=== PATIENT | male | born 1950 | race Caucasian/White ===

== ENCOUNTER 2021-05-15 11:58 | Emergency (ER) | payer MEDICARE ==
[~2021-05-15] VITALS: Ht 170.2 cm; Wt 90.0 kg
[2021-05-15 12:21] VITALS: BP 199/73
[2021-05-15 14:41] LABS: CHLORIDE 104 mEq/L (98-107)
[2021-05-15 16:00] LABS: CLARITY URINE CLEAR (CLEAR); COLOR URINE YELLOW (YELLOW); KETONES URINE NEGATIVE (NEGATIVE); LEUKOCYTE ESTERASE URINE NEGATIVE (NEGATIVE); NITRITE URINE NEGATIVE (NEGATIVE); OCCULT BLOOD URINE 1+ (NEGATIVE); PH URINE 5.5 (4.5-8.0); PROTEIN URINE TRACE (NEGATIVE); SPECIFIC GRAVITY URINE 1.017 (1.005-1.030); UROBILINOGEN URINE 0.2 E.U./dL (0.2-1.0)
[2021-05-16] MEDS ORDERED: CEPH500T MT (11:12)
== END 2021-05-15 17:03 | disposition home or self-care (01) ==
LOC: ER 11:58
DX: N40.1 Benign prostatic hyperplasia with lower urinary tract symptoms (principal); R33.8 Other retention of urine
CPT/HCPCS: 36415; 51702; 80048; 81003; 99284; A4315

== ENCOUNTER 2021-05-16 09:39 | Emergency (ER) | payer MEDICARE ==
[~2021-05-16] VITALS: Ht 170.2 cm; Wt 82.0 kg
[2021-05-16 10:02] LABS: BASOPHILS % 0.4 % (0.0-2.0); EOSINOPHILS % 0.7 % (0.0-5.0); HEMATOCRIT. 45.8 % (42.0-52.0); HEMOGLOBIN. 15.3 g/dL (14.0-18.0); LYMPHOCYTES % 22.1 % (20.0-50.0); MEAN CORPUSCULAR HEMOGLOBIN 31.2 pg (28.0-32.0); MEAN CORPUSCULAR VOLUME 93.5 fL (80.0-94.0); MEAN PLATELET VOLUME 8.7 fl (7.4-10.4); MONOCYTES % 5.6 % (2.0-8.0); NEUTROPHILS % 71.2 % (40.0-76.0); PLATELET 295 x1000/uL (130-400); RED CELL DISTRIBUTION WIDTH 14.4 % (11.6-14.6)
[2021-05-16 10:09] LABS: CHLORIDE 106 mEq/L (98-107)
[2021-05-16] MEDS ORDERED: CEPH500T MT (11:12)
[2021-05-16 11:40] VITALS: BP 165/66
== END 2021-05-16 11:40 | disposition home or self-care (01) ==
LOC: ER 09:39
DX: N39.0 Urinary tract infection, site not specified (principal); Z87.442 Personal history of urinary calculi; Z87.898 Personal history of other specified conditions
CPT/HCPCS: 36415; 80048; 85025; 99283; A4315